=== PATIENT | male | born 1955 ===

== ENCOUNTER 2018-12-19 16:38 | Emergency (ER) | payer BC, OTHER ==
--- NOTE | 2018-12-19 17:13 | EDM.PDOC ---
ED HPI GENERAL MEDICAL PROBLEM - General Chief Complaint: Lower Extremity Injury/Pain Stated Complaint: LF LEG POSSIBLE BLOOD CLOT Time Seen by Provider: 12/19/18 17:04 - History of Present Illness INITIAL COMMENTS - FREE TEXT/NARRATIVE: HISTORY AND PHYSICAL: History of present illness: Patient is 63-year-old white male with history of prior DVT years ago who presents status post fall which injured his right knee he also is concerned about left leg swelling ruling out DVT T. There is no other trauma or concern no head or neck pain or trauma no chest pain dizziness shortness of breath or other complaints Review of systems: As per history of present illness and below otherwise all systems reviewed and negative. Past medical history: As per history of present illness and as reviewed below otherwise noncontributory. Surgical history: As per history of present illness and as reviewed below otherwise noncontributory. Social history: No reported history of drug or alcohol abuse. Family history: As per history of present illness and as reviewed below otherwise noncontributory. Physical exam: HEENT: Atraumatic, normocephalic, pupils reactive, negative for conjunctival pallor or scleral icterus, mucous membranes moist, throat clear, neck supple, nontender, trachea midline. Lungs: Clear to auscultation, breath sounds equal bilaterally, chest nontender. Heart: S1S2, regular, negative for clicks, rubs, or JVD. Abdomen: Soft, nondistended, nontender. Negative for masses or hepatosplenomegaly. Negative for costovertebral tenderness. Pelvis: Stable nontender. Genitourinary: Deferred. Rectal: Deferred. Extremities: Patient's right knee has no point tenderness is grossly stable no significant effusion neurovascular exam is unremarkable left leg has no cords or significant calf pain noted neurovascular exam is unremarkable Neuro: Awake, alert, oriented. Cranial nerves II through XII unremarkable. Cerebellum unremarkable. Motor and sensory unremarkable throughout. Exam nonfocal. Diagnostics: X-ray right knee venous Doppler left lower extremity Therapeutics: None Impression: Umber 1 acute right knee injury #2 left lower extremity pain venous Doppler negative Definitive disposition and diagnosis as appropriate pending reevaluation and review of above. left leg Pain Score (Numeric/FACES): 2 right leg Pain Score (Numeric/FACES): 8 - Related Data Allergies Allergy/AdvReac Type Severity Reaction Status Date / Time No Known Allergies Allergy Verified 07/18/17 11:02 Home Meds: Home Meds Omeprazole 20 mg PO DAILY 12/19/18 [History] metFORMIN [Glucophage XR] 750 mg PO DAILY 12/19/18 [History] Past Medical History HEENT History: Reports: Impaired Vision Cardiovascular History: Reports: Hypertension Gastrointestinal History: Reports: GERD Endocrine/Metabolic History: Reports: Diabetes, Type II - Infectious Disease History Infectious Disease History: Reports: Chicken Pox, Mumps - Past Surgical History GI Surgical History: Reports: Cholecystectomy Social & Family History - Family History Family Medical History: Noncontributory - Tobacco Use Smoking Status *Q: Current Every Day Smoker Years of Tobacco use: 5 Packs/Tins Daily: 0.5 - Caffeine Use Caffeine Use: Reports: Coffee - Recreational Drug Use Recreational Drug Use: No Review of Systems - Review of Systems Review Of Systems: ROS reveals no pertinent complaints other than HPI. ED EXAM, GENERAL - Physical Exam Exam: See Below (See dictation) Course - Vital Signs Last Recorded V/S: Last Vital Signs Temp Pulse 68 12/19/18 18:10 Resp 18 12/19/18 18:10 BP 134/70 12/19/18 18:10 Pulse Ox 97 12/19/18 18:10 - Orders/Labs/Meds Orders: Active Orders 24 hr Category Date Time Status Knee 3V Rt [CR] Stat Exams 12/19/18 17:11 Taken Venous Doppler Lwr Ext Lt [US] Stat Exams 12/19/18 17:04 Taken Departure - Departure Time of Disposition: 18:47 Disposition: Home, Self-Care 01 Condition: Good Clinical Impression: Knee injury, Leg pain - Discharge Information Referrals: Sury Flores NP [Primary Care Provider] - Forms: ED Department Discharge Additional Instructions: The following information is given to patients seen in the emergency department who are being discharged to home. This information is to outline your options for follow-up care. We provide all patients seen in our emergency department with a follow-up referral. The need for follow-up, as well as the timing and circumstances, are variable depending upon the specifics of your emergency department visit. If you don't have a primary care physician on staff, we will provide you with a referral. We always advise you to contact your personal physician following an emergency department visit to inform them of the circumstance of the visit and for follow-up with them and/or the need for any referrals to a consulting specialist. The emergency department will also refer you to a specialist when appropriate. This referral assures that you have the opportunity for followup care with a specialist. All of these measure are taken in an effort to provide you with optimal care, which includes your followup. Under all circumstances we always encourage you to contact your private physician who remains a resource for coordinating your care. When calling for followup care, please make the office aware that this follow-up is from your recent emergency room visit. If for any reason you are refused follow-up, please contact the [facility] emergency department at and asked to speak to the emergency department charge nurse. [facility] [address] [place] [address], [address] [place] [address] Continue current medications follow up primary medical doctor orthopedic referral as needed as discussed and return as needed as discussed
--- NOTE | 2018-12-19 19:02 | CR ---
Fall 2 days ago. Three views of the right knee Findings: Normal anatomic alignment. Minimal medial compartment joint space narrowing. Osteophytic changes. No fractures seen. No effusion. IMPRESSION: 1. Minimal degenerative change. No acute fracture. Dictated by Thi Ayon MD @ Dec 19 2018 7:01PM Signed by Dr. Thi Ayon @ Dec 19 2018 7:01PM
--- NOTE | 2018-12-19 19:33 | US ---
Clinical INDICATION: Left ankle swelling. Findings : The common femoral, superficial femoral, deep femoral, greater saphenous, popliteal, and posterior tibial veins demonstrate normal flow, compressibility and augmentation. IMPRESSION: Negative for deep venous thrombosis within the left lower extremity. Dictated by Tony Garcia MD @ Dec 19 2018 7:27PM Signed by Dr. Tony Garcia @ Dec 19 2018 7:31PM
== END 2018-12-19 19:50 | disposition home or self-care (01) ==
LOC: MW.ED 16:38
DX: S89.91XA Unspecified injury of right lower leg, initial encounter (principal); E11.9 Type 2 diabetes mellitus without complications; K21.9 Gastro-esophageal reflux disease without esophagitis; I10 Essential (primary) hypertension; Z79.899 Other long term (current) drug therapy; Z79.84 Long term (current) use of oral hypoglycemic drugs; Z86.718 Personal history of other venous thrombosis and embolism; W19.XXXA Unspecified fall, initial encounter
CPT/HCPCS: 73562-26-RT; 73562-RT; 93971-26-LT; 93971-LT; 99282; 99284-25